=== PATIENT | male | born 1965 | race Two or more races ===

== ENCOUNTER 2021-10-23 21:02 | Emergency (ER) | payer SELFPAY ==
[~2021-10-23 21:02] MED LIST: CYCLOBENZAPRINE5 MG PO
[2021-10-23 22:18] LABS: RED BLOOD COUNT 4.63 M/UL (4.20-5.50); WHITE BLOOD COUNT 6.3 K/UL (4.5-11.0)
[2021-10-23 22:39] LABS: BUN/CREATININE RATIO 29 (0-10)
== END 2021-10-24 01:55 | disposition home or self-care (01) ==
LOC: ER1 21:02
PROVIDERS: Family Medicine
DX: S09.90XA Unspecified injury of head, initial encounter (principal); R07.9 Chest pain, unspecified; E11.9 Type 2 diabetes mellitus without complications; I10 Essential (primary) hypertension; Y04.8XXA Assault by other bodily force, initial encounter
CPT/HCPCS: 70450; 71045; 80053; 82550; 82553; 84484; 85025; 93005; 99284

== ENCOUNTER 2022-03-09 08:58 | Emergency (ER) | payer SELFPAY ==
[2022-03-09 10:30] LABS: HEMOGLOBIN 13.7 gm/dl (14.0-17.5); RED BLOOD COUNT 4.51 M/UL (4.20-5.50); WHITE BLOOD COUNT 7.8 K/UL (4.5-11.0)
[2022-03-09 10:34] LABS: BUN/CREATININE RATIO 24 (0-10)
[2022-03-09] MEDS ORDERED: METRONIDAZOLE500 MG PO (12:50)
== END 2022-03-09 13:15 | disposition home or self-care (01) ==
LOC: ER1 08:58
PROVIDERS: Physician Assistant Medical
DX: K52.9 Noninfective gastroenteritis and colitis, unspecified (principal); D69.6 Thrombocytopenia, unspecified; E11.9 Type 2 diabetes mellitus without complications; I10 Essential (primary) hypertension; Z79.84 Long term (current) use of oral hypoglycemic drugs; Z51.81 Encounter for therapeutic drug level monitoring
CPT/HCPCS: 80053; 81001; 82270; 83605; 83690; 85025; 85610; 96374; 96375; 99284; J2270; J2405; Q9967